=== PATIENT | female | born 1990 | race Caucasian/White ===

== ENCOUNTER 2020-05-05 18:11 | Inpatient (IN) ==
[2020-05-05] MEDS ORDERED: BUTORPHANOL 2 MG/ML VIAL IV PRN (18:33)
[2020-05-05] MEDS ORDERED: ONDANSETRON 4 MG/2 ML VIAL IV PRN (18:33)
[2020-05-05] MEDS ORDERED: LACTATED RINGERS 1,000 ML IV PRN (18:33)
[2020-05-05] MEDS ORDERED: BUTORPHANOL 1 MG/ML VIAL IV PRN (18:33)
[2020-05-05] MEDS ORDERED: SODIUM CHLORIDE 0.9% 100 ML IV ONE ×2 (18:34→18:43)
[2020-05-05] MEDS ORDERED: AMPICILLIN 2,000 MG VIAL ONE (18:34)
[2020-05-05] MEDS ORDERED: AMPICILLIN INJ 2,000 MG in SODIUM CHLORIDE 0.9% 100 ML IV ONE (18:35)
[2020-05-05] MEDS ORDERED: OXYTOCIN/LR 20 UNIT/1,000 ML BAG IV PRN (18:35)
[2020-05-05] MEDS ORDERED: ONDANSETRON 4 MG/2 ML VIAL ONE (18:36)
[2020-05-05] MEDS ORDERED: TRANEXAMIC ACID 1,000 MG/10 ML VIAL ONE (18:43)
[2020-05-05] MEDS ORDERED: miSOPROStoL 200 MCG TABLET ONE (18:43)
[2020-05-05] MEDS ORDERED: LIDOCAINE 1% 50 ML VIAL ONE (18:43)
[2020-05-05] MEDS ORDERED: CARBOPROST TROMETHAMINE 250 MCG/ML AMP IM ONE (18:44)
[2020-05-05] MEDS ORDERED: METHYLERGONOVINE 0.2 MG/1 ML AMP ONE (18:44)
[2020-05-05 18:53] LABS: Basophils % 0.3 % (0.0-0.8); Eosinophils # 0.2 10*3/uL (0.0-0.87); Eosinophils % 1.9 % (0.00-10.9); Hematocrit 39.7 VOL% (35.7-47.0); Hemoglobin 12.7 GM/DL (12.0-16.0); Immature Granulocytes % 0.6 %; Immature Granulocytes Absolute 0.07 #; Lymphocytes # 2.4 10*3/uL (1.4-4.0); Lymphocytes % 19.2 % (21.3-54.2); Mean Corpuscular Volume 85.4 FL (87-102); Mean Platelet Volume 9.7 FL (9.6-12.0); Monocytes % 8.6 % (1.7-12.7); Neutrophils % 69.4 % (38.7-73.9); Platelet Count 258 T/CUMM (130-400); Red Blood Count 4.65 MC/CUMM (3.8-5.5); Red Cell Distribution Width 13.1 % (9.3-17.3); White Blood Count 12.6 T/CUMM (4-12)
[2020-05-05 19:10] LABS: Alanine Aminotransferase 76 U/L (13-56); Albumin 2.6 G/DL (3.4-5.0); Alkaline Phosphatase 207 U/L (45-117); Aspartate Amino Transferase 27 U/L (0-37); Bilirubin,Total < 0.39 MG/DL (0.2-1.0); Blood Urea Nitrogen 11 MG/DL (7-18); Calcium 9.4 MG/DL (8.5-10.1); Estimated Glom Filtration Rate 116 ML/MIN; Glucose 81 MG/DL (74-106); Total Protein 7.6 G/DL (6.4-8.3)
[2020-05-05] MEDS ORDERED: BISACODYL 10 MG SUPP RECTAL PRN (19:34)
[2020-05-05] MEDS ORDERED: RHO(D) IMMUNE GLOBULIN 300 MCG SYRINGE IM ONE (19:34)
[2020-05-05] MEDS ORDERED: LANOLIN 50% CREAM 0.3 OZ TUBE TOP PRN (19:34)
[2020-05-05] MEDS ORDERED: HYDROCORTISONE 2.5% RECTAL CREAM 30 GM TUBE TOP PRN (19:34)
[2020-05-05] MEDS ORDERED: DIPH/TET/ACEL PERT BOOSTER VACCINE 0.5 ML VIAL IM ONE (19:34)
[2020-05-05] MEDS ORDERED: ACETAMINOPHEN 325 MG TABLET PO PRN (19:34)
[2020-05-05] MEDS ORDERED: IBUPROFEN 800 MG TABLET PO PRN (19:34)
[2020-05-05] MEDS ORDERED: BENZOCAINE 20%/MENTHOL 0.5% SPRAY 56 GM CAN TOP PRN (19:34)
[2020-05-05] MEDS ORDERED: WITCH HAZEL PADS 100/JAR TOP PRN (19:34)
[2020-05-05 19:44] LABS: Cord Venous Blood HCO3 23.1 MMOL/L; Cord Venous Blood PCO2 38.1 MMHG; Cord Venous Blood PO2 37.8
[2020-05-05] MEDS: DOCUSATE SODIUM 100 MG CAPSULE PO SCH (22:46)
[2020-05-06] MEDS ORDERED: ALUMINUM/MAGNES/SIMETH MAX STR 30 ML UDCUP PO PRN (02:02)
[2020-05-06 06:17] LABS: Basophils # 0.1 10*3/uL (0.0-0.2); Basophils % 0.3 % (0.0-0.8); Eosinophils # 0.2 10*3/uL (0.0-0.87); Eosinophils % 0.9 % (0.00-10.9); Hematocrit 32.7 VOL% (35.7-47.0); Hemoglobin 10.9 GM/DL (12.0-16.0); Immature Granulocytes % 0.6 %; Lymphocytes # 2.7 10*3/uL (1.4-4.0); Lymphocytes % 16.8 % (21.3-54.2); Mean Corpuscular HGB Conc 33.3 GM/DL (32-36); Mean Corpuscular Volume 83.2 FL (87-102); Mean Platelet Volume 9.9 FL (9.6-12.0); Monocytes % 10.1 % (1.7-12.7); Neutrophils % 71.3 % (38.7-73.9); Platelet Count 224 T/CUMM (130-400); Red Blood Count 3.93 MC/CUMM (3.8-5.5); Red Cell Distribution Width 12.8 % (9.3-17.3); White Blood Count 16.3 T/CUMM (4-12)
[2020-05-06] MEDS: MULTIVITAMIN (PRENATAL) TABLET PO SCH (09:50)
[2020-05-06] MEDS: DOCUSATE SODIUM 100 MG CAPSULE PO SCH ×2 (09:50→20:12)
[2020-05-07 07:18] VITALS: BP 101/69
[2020-05-07] MEDS: DOCUSATE SODIUM 100 MG CAPSULE PO SCH (08:02)
[2020-05-07] MEDS: MULTIVITAMIN (PRENATAL) TABLET PO SCH (08:03)
== END 2020-05-07 13:00 | disposition home or self-care (01) | DRG 807 ==
LOC: N.LD 18:11 → N.OB 21:19
PROVIDERS: ADMIT Obstetrics & Gynecology; ATTEND Obstetrics & Gynecology

== ENCOUNTER 2021-08-05 06:30 | Inpatient (IN) ==
[2021-08-05] MEDS ORDERED: BUTORPHANOL 2 MG/ML VIAL IV PRN (07:04)
[2021-08-05] MEDS ORDERED: LACTATED RINGERS 1,000 ML IV PRN (07:04)
[2021-08-05] MEDS ORDERED: MEPERIDINE 50 MG/1 ML VIAL IV PRN (07:04)
[2021-08-05] MEDS ORDERED: ONDANSETRON 4 MG/2 ML VIAL IV PRN (07:04)
[2021-08-05 07:10] LABS: Amorphous Crystals,Urine Few /HPF (Few); Bilirubin,Urine Negative (Negative); Blood, Urine Negative (Negative); Glucose,Urine (UA) Negative (Negative); Ketones,Urine 20 mg/dL (Negative); Mucus,Urine Occasional /LPF (Occasional); Nitrite,Urine Negative (Negative); Protein,Urine Negative; RBC,Urine 2 /HPF (0-4); Squamous Epithelial Cell,Urine Occasional /HPF (0-10); Urine Appearance CLOUDY (Clear); Urine Color Yellow (Yellow); Urine Specific Gravity 1.014 (1.001-1.035); Urine Urobilinogen < 2.0 EU/DL (0.2-1.0)
[2021-08-05] MEDS: AMPICILLIN INJ 2,000 MG in SODIUM CHLORIDE 0.9% 100 ML IV SCH (07:28)
[2021-08-05 07:37] LABS: Basophils # 0.1 10*3/uL (0.0-0.2); Basophils % 0.5 % (0.0-0.8); Eosinophils # 0.3 10*3/uL (0.0-0.87); Eosinophils % 2.3 % (0.00-10.9); Hematocrit 36.1 VOL% (35.7-47.0); Hemoglobin 11.9 GM/DL (12.0-16.0); Immature Granulocytes % 0.7 %; Immature Granulocytes Absolute 0.09 #; Lymphocytes % 16.1 % (21.3-54.2); Mean Platelet Volume 9.4 FL (9.6-12.0); Monocytes % 9.6 % (1.7-12.7); Neutrophils % 70.8 % (38.7-73.9); Platelet Count 229 T/CUMM (130-400); Red Cell Distribution Width 13.7 % (9.3-17.3); White Blood Count 12.1 T/CUMM (4-12)
[2021-08-05] MEDS ORDERED: OXYTOCIN/LR 20 UNIT/1,000 ML BAG IV PRN (07:38)
[2021-08-05 08:07] LABS: Albumin 2.6 G/DL (3.4-5.0); Bilirubin,Total 0.4 MG/DL (0.20-1.00); Calcium 9.8 MG/DL (8.5-10.1); Osmolality,Calculated 265.2 MOS/KG (273-304); Potassium 3.9 MMOL/L (3.5-5.1); Total Protein 7.1 G/DL (6.4-8.2)
[2021-08-05] MEDS: OXYTOCIN/LR 20 UNIT/1,000 ML BAG IV SCH (09:11)
[2021-08-05] MEDS ORDERED: CARBOPROST TROMETHAMINE 250 MCG/ML AMP IM ONE (10:26)
[2021-08-05] MEDS ORDERED: miSOPROStoL 200 MCG TABLET ONE (10:26)
[2021-08-05] MEDS ORDERED: TRANEXAMIC ACID 1,000 MG/10 ML VIAL ONE (10:26)
[2021-08-05] MEDS ORDERED: METHYLERGONOVINE 0.2 MG/1 ML AMP ONE (10:26)
[2021-08-05] MEDS ORDERED: LIDOCAINE 2% 20 ML VIAL ONE (10:55)
[2021-08-05] MEDS ORDERED: RHO(D) IMMUNE GLOBULIN 300 MCG SYRINGE IM ONE (11:11)
[2021-08-05] MEDS ORDERED: ACETAMINOPHEN/CODEINE 300-30 MG TABLET PO PRN (11:11)
[2021-08-05] MEDS ORDERED: BISACODYL 10 MG SUPP RECTAL PRN (11:11)
[2021-08-05] MEDS ORDERED: LANOLIN 50% CREAM 0.3 OZ TUBE TOP PRN (11:11)
[2021-08-05] MEDS ORDERED: HYDROCORTISONE 2.5% RECTAL CREAM 30 GM TUBE TOP PRN (11:11)
[2021-08-05] MEDS ORDERED: ACETAMINOPHEN 325 MG TABLET PO PRN (11:11)
[2021-08-05] MEDS ORDERED: WITCH HAZEL PADS 100/JAR TOP PRN (11:11)
[2021-08-05] MEDS ORDERED: BENZOCAINE 20%/MENTHOL 0.5% SPRAY 56 GM CAN TOP PRN (11:11)
[2021-08-05] MEDS: IBUPROFEN 800 MG TABLET PO PRN ×2 (15:59→21:32)
[2021-08-05] MEDS: DOCUSATE SODIUM 100 MG CAPSULE PO SCH (21:32)
[2021-08-06] MEDS ORDERED: METOCLOPRAMIDE 10 MG/2 ML VIAL IV SCH (03:00)
[2021-08-06] MEDS: IBUPROFEN 800 MG TABLET PO PRN ×2 (06:09→21:07)
[2021-08-06 06:33] LABS: Basophils # 0.1 10*3/uL (0.0-0.2); Basophils % 0.4 % (0.0-0.8); Eosinophils # 0.3 10*3/uL (0.0-0.87); Eosinophils % 3.1 % (0.00-10.9); Hematocrit 31.7 VOL% (35.7-47.0); Hemoglobin 10.2 GM/DL (12.0-16.0); Immature Granulocytes % 0.8 %; Immature Granulocytes Absolute 0.09 #; Lymphocytes # 2.5 10*3/uL (1.4-4.0); Lymphocytes % 22.3 % (21.3-54.2); Mean Corpuscular HGB Conc 32.2 GM/DL (32-36); Mean Corpuscular Volume 86.1 FL (87-102); Mean Platelet Volume 9.8 FL (9.6-12.0); Monocytes % 13.3 % (1.7-12.7); Neutrophils % 60.1 % (38.7-73.9); Platelet Count 215 T/CUMM (130-400); Red Blood Count 3.68 MC/CUMM (3.8-5.5); Red Cell Distribution Width 13.5 % (9.3-17.3); White Blood Count 11.1 T/CUMM (4-12)
[2021-08-06] MEDS: DOCUSATE SODIUM 100 MG CAPSULE PO SCH ×2 (09:09→21:07)
[2021-08-06] MEDS: MULTIVITAMIN (PRENATAL) TABLET PO SCH (09:09)
[2021-08-06] MEDS: OXYTOCIN/LR 20 UNIT/1,000 ML BAG IV SCH (09:11)
[2021-08-06] MEDS: AMPICILLIN INJ 2,000 MG in SODIUM CHLORIDE 0.9% 100 ML IV SCH (09:52)
[2021-08-07 08:17] VITALS: BP 113/70
[2021-08-07] MEDS: MULTIVITAMIN (PRENATAL) TABLET PO SCH (08:47)
[2021-08-07] MEDS: DOCUSATE SODIUM 100 MG CAPSULE PO SCH (08:47)
[2021-08-07] MEDS ORDERED: DIPH/TET/ACEL PERT BOOSTER VACCINE 0.5 ML VIAL IM ONE (10:44)
== END 2021-08-07 13:05 | disposition home or self-care (01) | DRG 807 ==
LOC: N.LD 06:30 → N.OB 13:53
PROVIDERS: ADMIT Obstetrics & Gynecology; ATTEND Obstetrics & Gynecology